=== PATIENT | female | born 1955 | race Caucasian/White ===

== ENCOUNTER 2021-01-18 02:35 | Emergency (ER) | payer MEDICARE, OTHER ==
[2021-01-18] MEDS ORDERED: Sodium Chloride 0.9% 1000 ML 1,000 ML IV STA (02:56)
--- NOTE | 2021-01-18 02:56 | ERPHSYRPT ---
- History of Present Illness Time Seen by Provider: 01/18/21 02:50 Source: patient, family Exam Limitations: no limitations Physician History: This is a 65-year-old white female who has had a hysterectomy in the past and presents with first urinary tract infection including dysuria and frequency that began on Sunday evening. Patient had these symptoms all day Sunday. Then, approximately 1 AM, this a.m., patient noticed more severe dysuria with associated hematuria then blood clots present. She had this 1 other time in the very distant past. She does not recall what the diagnosis was. She does not recall what the treatment was at the time. She has had no diarrhea. She has had no vomiting. He has suprapubic pain/pressure present. The worst pain is when she is urinating. Patient denies chest pain and she denies shortness of breath. She denies fever. She is not on any anticoagulation therapy and she has no liver disease. She has no bleeding or clotting disorders. Timing/Duration: yesterday Activites at Onset: none Quality: sharpness, stabbing Onset Location: suprapubic Pain Radiation: none Severity of Pain-Max: moderate Severity of Pain-Current: moderate Prior abdominal problems: none Sexual intercourse history: non-contributory Modifying Factors: Improves With: urinating (Worsens pain) Associated Symptoms: dysuria, urinary frequency, No fever, No chills Allergies/Adverse Reactions: alendronate sodium [From Fosamax] Allergy (Verified 01/18/21 03:22) Pctofyd-Bgp-Tld Reductase Inhibitor Allergy (Verified 01/18/21 03:22) Home Medications: Ezetimibe 10 mg [Zetia 10 MG] 10 mg PO DAILY 01/18/21 [History] Levothyroxine Sodium [Levothyroxine] 50 mcg PO DAILY 01/18/21 [History] Tolterodine Tartrate [Tolterodine Tartrate ER] 4 mg PO DAILY 01/18/21 [History] lisinopriL [Lisinopril] 10 mg PO DAILY 01/18/21 [History] Travel Risk - International Travel Have you traveled outside of the country in past 3 weeks: No - Coronavirus Screening Are you exhibiting any of the following symptoms?: No Close contact with a COVID-19 positive Pt in past 14-21 Days: No - Vaccine Status Have you recieved a Covid-19 vaccination: No - Review of Systems Constitutional: No Symptoms Eyes: No Symptoms Ears, Nose, & Throat: No Symptoms Respiratory: No Symptoms Cardiac: No Symptoms Abdominal/Gastrointestinal: Abdominal Pain (Pubic pressure) Genitourinary Symptoms: Frequency, Hematuria, Urgency Musculoskeletal: No Symptoms Skin: No Symptoms Neurological: No Symptoms Psychological: No Symptoms Endocrine: No Symptoms Hematologic/Lymphatic: No Symptoms Immunological/Allergic: No Symptoms All Other Systems: Reviewed and Negative - Past Medical History Pertinent Past Medical History: Yes - Past Surgical History Past Surgical History: Yes - Nursing Vital Signs Nursing Vital Signs: Initial Vital Signs Temperature 97.7 F 01/18/21 02:47 Pulse Rate 81 01/18/21 02:47 Respiratory Rate 18 01/18/21 02:47 Blood Pressure 171/81 01/18/21 02:47 O2 Sat by Pulse Oximetry 99 01/18/21 02:47 Pain Scale Pain Intensity 2 - Physical Exam General Appearance: no apparent distress, alert, anxiety Eye Exam: PERRL/EOMI, eyes nml inspection Ears, Nose, Throat Exam: normal ENT inspection, moist mucous membranes Neck Exam: normal inspection, non-tender, supple, full range of motion Respiratory Exam: normal breath sounds, lungs clear, airway intact, No chest tenderness, No respiratory distress Cardiovascular Exam: regular rate/rhythm, normal heart sounds, normal peripheral pulses Gastrointestinal/Abdomen Exam: soft, normal bowel sounds, tenderness, guarding, No rebound Pelvic Exam: not done Rectal Exam: not done Back Exam: normal inspection, normal range of motion, No CVA tenderness, No matthew tebral tenderness Extremity Exam: normal inspection, normal range of motion, pelvis stable Neurologic Exam: alert, oriented x 3, cooperative, 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 as tested, normal mood/affect, nml cerebellar function, nml station & gait, sensation nml Skin Exam: normal color, warm, dry Lymphatic Exam: No adenopathy SpO2 Interpretation: normal O2 Delivery: Room Air - Course Nursing assessment & vital signs reviewed: Yes Ordered Tests: Active Orders 24 hr Category Date Time Status IV Insertion STAT Care 01/18/21 02:56 Active ABDOMEN AND PELVIS W/0 CONTRAS [CT] Stat Exams 01/18/21 02:56 Taken AMYLASE Stat Lab 01/18/21 03:08 Completed CBC W DIFF Stat Lab 01/18/21 03:08 Completed CMP Stat Lab 01/18/21 03:08 Completed CULTURE,URINE Stat Lab 01/18/21 04:42 Received LIPASE Stat Lab 01/18/21 03:08 Completed Lactic Acid Stat Lab 01/18/21 03:09 Completed PROTIME WITH INR Stat Lab 01/18/21 03:08 Completed UA W/RFX UR CULTURE Stat Lab 01/18/21 04:42 Completed Medication Summary Discontinued Medications Generic Name Dose Route Start Last Admin Trade Name Dejan PRN Reason Stop Dose Admin Hydromorphone HCl 1 mg 01/18/21 03:02 01/18/21 03:11 Hydromorphone 1 Mg/Ml Injection IV 01/18/21 03:03 1 mg STAT ONE Administration Hydromorphone HCl Confirm 01/18/21 03:10 Hydromorphone 1 Mg/Ml Injection Administered 01/18/21 03:11 Dose 1 mg .ROUTE .STK-MED ONE Sodium Chloride 1,000 mls @ 999 mls/hr 01/18/21 02:56 01/18/21 04:21 Sodium Chloride 0.9% 1000 Ml IV 01/18/21 03:56 Infused .Q1H1M STA Infusion Sodium Chloride Confirm 01/18/21 03:10 Sodium Chloride 0.9% 1000 Ml Administered 01/18/21 03:11 Dose 1,000 mls @ ud .ROUTE .STK-MED ONE Ondansetron HCl 4 mg 01/18/21 03:02 01/18/21 03:11 Zofran 4 Mg/2 Ml Vial IV 01/18/21 03:03 4 mg STAT ONE Administration Ondansetron HCl Confirm 01/18/21 03:10 Zofran 4 Mg/2 Ml Vial Administered 01/18/21 03:11 Dose 4 mg .ROUTE .STK-MED ONE Lab/Rad Data: Laboratory Result Diagrams 01/18/21 03:08 01/18/21 03:08 Laboratory Results 01/18/21 01/18/21 01/18/21 Range/Units 04:42 03:09 03:08 WBC (4.0-10.5) K/mm3 RBC (4.1-5.4) M/mm3 Hgb (12.0-16.0) gm/dl Hct (35-47) % MCV (78-100) fl MCH (26-32) pg MCHC (32-36) g/dl RDW (11.5-14.0) % Plt Count (150-450) K/mm3 MPV (7.5-11.0) fl Gran % (36.0-66.0) % Eos # (Auto) (0-0.5) Absolute Lymphs (auto) (1.0-4.6) Absolute Monos (auto) (0.0-1.3) Lymphocytes % (24.0-44.0) % Monocytes % (0.0-12.0) % Eosinophils % (0.00-5.0) % Basophils % (0.0-0.4) % Absolute Granulocytes (1.4-6.9) Basophils # (0-0.4) PT 10.5 (9.95-12.35) SECONDS INR 0.93 (0.8-3.0) Sodium (137-145) mmol/L Potassium (3.5-5.1) mmol/L Chloride (98-107) mmol/L Carbon Dioxide (22-30) mmol/L Anion Gap (5-15) MEQ/L BUN (7-17) mg/dL Creatinine (0.52-1.04) mg/dL Estimated GFR ML/MIN Glucose (74-106) mg/dL Lactic Acid 1.4 (0.4-2.0) Calcium (8.4-10.2) mg/dL Total Bilirubin (0.2-1.3) mg/dL AST (14-36) U/L ALT (0-35) U/L Alkaline Phosphatase (38-126) U/L Serum Total Protein (6.3-8.2) g/dL Albumin (3.5-5.0) g/dL Amylase (30-110) U/L Lipase (23-300) U/L Urine Color RED (YELLOW) Urine Appearance CLOUDY (CLEAR) Urine pH 6.0 (5-6) Ur Specific [place] 1.011 (1.005-1.025) Urine Protein 100 (Negative) Urine Ketones NEGATIVE (NEGATIVE) Urine Blood LARGE (0-5) David/ul Urine Nitrite POSITIVE (NEGATIVE) Urine Bilirubin NEGATIVE (NEGATIVE) Urine Urobilinogen 2 (0-1) mg/dL Ur Leukocyte Esterase SMALL (NEGATIVE) Urine WBC (Auto) 6-10 (0-5) /HPF Urine RBC (Auto) >101 (0-2) /HPF U Epithel Cells (Auto) RARE (FEW) /HPF Urine Bacteria (Auto) FEW (NEGATIVE) /HPF Urine Culture Reflexed YES (NO) Urine Glucose NEGATIVE (NEGATIVE) mg/dL 01/18/21 01/18/21 Range/Units 03:08 03:08 WBC 13.6 H (4.0-10.5) K/mm3 RBC 4.36 (4.1-5.4) M/mm3 Hgb 13.1 (12.0-16.0) gm/dl Hct 38.9 (35-47) % MCV 89.2 (78-100) fl MCH 30.0 (26-32) pg MCHC 33.7 (32-36) g/dl RDW 13.9 (11.5-14.0) % Plt Count 329 (150-450) K/mm3 MPV 8.7 (7.5-11.0) fl Gran % 79.7 H (36.0-66.0) % Eos # (Auto) 0.09 (0-0.5) Absolute Lymphs (auto) 1.84 (1.0-4.6) Absolute Monos (auto) 0.80 (0.0-1.3) Lymphocytes % 13.5 L (24.0-44.0) % Monocytes % 5.9 (0.0-12.0) % Eosinophils % 0.7 (0.00-5.0) % Basophils % 0.2 (0.0-0.4) % Absolute Granulocytes 10.86 H (1.4-6.9) Basophils # 0.03 (0-0.4) PT (9.95-12.35) SECONDS INR (0.8-3.0) Sodium 138 (137-145) mmol/L Potassium 4.1 (3.5-5.1) mmol/L Chloride 101 (98-107) mmol/L Carbon Dioxide 28 (22-30) mmol/L Anion Gap 13.2 (5-15) MEQ/L BUN 12 (7-17) mg/dL Creatinine 0.64 (0.52-1.04) mg/dL Estimated GFR > 60.0 ML/MIN Glucose 106 (74-106) mg/dL Lactic Acid (0.4-2.0) Calcium 10.0 (8.4-10.2) mg/dL Total Bilirubin 0.40 (0.2-1.3) mg/dL AST 30 (14-36) U/L ALT 20 (0-35) U/L Alkaline Phosphatase 87 (38-126) U/L Serum Total Protein 7.2 (6.3-8.2) g/dL Albumin 4.5 (3.5-5.0) g/dL Amylase 57 (30-110) U/L Lipase 96 (23-300) U/L Urine Color (YELLOW) Urine Appearance (CLEAR) Urine pH (5-6) Ur Specific [place] (1.005-1.025) Urine Protein (Negative) Urine Ketones (NEGATIVE) Urine Blood (0-5) David/ul Urine Nitrite (NEGATIVE) Urine Bilirubin (NEGATIVE) Urine Urobilinogen (0-1) mg/dL Ur Leukocyte Esterase (NEGATIVE) Urine WBC (Auto) (0-5) /HPF Urine RBC (Auto) (0-2) /HPF U Epithel Cells (Auto) (FEW) /HPF Urine Bacteria (Auto) (NEGATIVE) /HPF Urine Culture Reflexed (NO) Urine Glucose (NEGATIVE) mg/dL - Progress Progress: improved, re-examined Air Movement: good Progress Note: 01/18/21 05:32 CAT scan of the abdomen pelvis reveals mild bladder wall thickening and perivesical fat stranding suggestive of cystitis/UTI Blood Culture(s) Obtained: No Antibiotics given: Yes Counseled pt/family regarding: lab results, diagnosis, need for follow-up, rad results - Departure Departure Disposition: Home Clinical Impression: Hemorrhagic cystitis, UTI (urinary tract infection) Condition: Stable Critical Care Time: No Additional Instructions: Drink plenty of fluids. Take medication as prescribed. Follow-up with your primary care physician for further management Prescriptions: Hydrocodone/APAP 5/325 [[place] 5/325 mg] 1 each PO Q8H PRN PRN #9 tablet MDD 3 PRN Reason: Pain Ciprofloxacin [Cipro 500 MG] 500 mg PO BID #14 tablet
[2021-01-18] MEDS ORDERED: Zofran 4 MG/2 ML VIAL IV ONE (03:02)
[2021-01-18] MEDS ORDERED: Hydromorphone 1 mg/ml Injection IV ONE (03:02)
[2021-01-18] MEDS ORDERED: Sodium Chloride 0.9% 1000 ML 1,000 ML ONE (03:10)
[2021-01-18] MEDS ORDERED: Hydromorphone 1 mg/ml Injection ONE (03:10)
[2021-01-18] MEDS ORDERED: Zofran 4 MG/2 ML VIAL ONE (03:10)
[2021-01-18 03:23] LABS: Absolute Neutrophil Ct (ANC) 10.86 (1.4-6.9); BASOPHIL % 0.2 % (0.0-0.4); Basophil (Absolute #) 0.03 (0-0.4); Eosinophil % 0.7 % (0.00-5.0); Eosinophil (Absolute #) 0.09 (0-0.5); Hematocrit 38.9 % (35-47); Hemoglobin 13.1 gm/dl (12.0-16.0); Lymphocyte (Absolute #) 1.84 (1.0-4.6); Lymphocytes % 13.5 % (24.0-44.0); Mean Cell Volume 89.2 fl (78-100); Mean Corpuscular Hgb Concent. 33.7 g/dl (32-36); Mean Platelet Volume 8.7 fl (7.5-11.0); Monocytes % 5.9 % (0.0-12.0); Neutrophil % 79.7 % (36.0-66.0); Platelet Count 329 K/mm3 (150-450); Red Blood Count 4.36 M/mm3 (4.1-5.4); Red Cell Distribution Width 13.9 % (11.5-14.0); White Blood Count 13.6 K/mm3 (4.0-10.5)
[2021-01-18 03:29] LABS: INR 0.93 (0.8-3.0); PROTIME 10.5 SECONDS (9.95-12.35)
[2021-01-18 03:35] LABS: ALBUMIN 4.5 g/dL (3.5-5.0); ALKALINE PHOSPHATASE 87 U/L (38-126); AMYLASE 57 U/L (30-110); ANION GAP 13.2 MEQ/L (5-15); BLOOD UREA NITROGEN 12 mg/dL (7-17); CHLORIDE 101 mmol/L (98-107); Carbon Dioxide 28 mmol/L (22-30); Creatinine 1 0.64 mg/dL (0.52-1.04); EST GLOMERULAR FILTRATION RATE > 60.0 ML/MIN; Glucose 106 mg/dL (74-106); LIPASE 96 U/L (23-300); Potassium 4.1 mmol/L (3.5-5.1); SGOT/AST 30 U/L (14-36); SGPT/ALT 20 U/L (0-35); SODIUM 138 mmol/L (137-145); Total Protein 7.2 g/dL (6.3-8.2)
[2021-01-18 04:54] LABS: Appearance CLOUDY (CLEAR); Bacteria FEW /HPF (NEGATIVE); Bilirubin NEGATIVE (NEGATIVE); Blood LARGE Ery/ul (0-5); Epithelial Cells RARE /HPF (FEW); Glucose NEGATIVE (NEGATIVE); Ketones NEGATIVE (NEGATIVE); Leukocyte Esterase SMALL (NEGATIVE); Nitrite POSITIVE (NEGATIVE); Protein,Urine Dip 100 (Negative); Specific Gravity 1.011 (1.005-1.025); Urobilinogen 2 mg/dL (0-1)
[2021-01-18 04:55] LABS: RBC >101 /HPF (0-2)
[2021-01-18] MEDS ORDERED: ROCEPHIN 1 Gm-D5w 50 ml Bag** 1 G/50 ML IVPB IV STA (05:30)
[2021-01-18] MEDS ORDERED: Levofloxacin 500 MG Tablet PO ONE (05:31)
[2021-01-18] MEDS ORDERED: Levofloxacin 500 MG Tablet ONE (05:43)
[2021-01-18] MEDS ORDERED: ROCEPHIN 1 Gm-D5w 50 ml Bag** 1 G/50 ML IVPB IV ONE (05:43)
[2021-01-18 06:16] VITALS: BP 135/68; PULSE 73; O2SAT 97
--- NOTE | 2021-01-18 09:02 | XRAY ---
Indication: Abdomen pain. Dysuria with blood clots. Multiple contiguous axial images obtained through the abdomen and pelvis without contrast. Comparison: None Lung bases demonstrate mild dependent atelectasis and small left lower calcified granuloma. No infiltrate or effusion. Heart is not enlarged. Noncontrasted stomach and bowel loops appear nonobstructed. Appendix not seen. Mild diffuse scattered colonic fecal debris throughout. There has been hysterectomy with bilateral pelvic surgical clips. No free fluid/air. Urinary bladder demonstrates mild circumferential wall thickening with minimal stranding, possibly cystitis in the right clinical setting. Splenic calcified granuloma. Remaining liver, gallbladder, pancreas, spleen, adrenal glands, kidneys, and ureters are unremarkable for noncontrast exam. Mild scattered aortoiliac calcifications without AAA. Osseous structures intact with mild degenerative changes throughout the spine. Impression: 1. Urinary bladder wall thickening with stranding. Rule out cystitis. 2. Incidental diffuse fecal stasis, chronic bony findings, and old granulomatous disease. Comment: Preliminary interpretation was made by [facility]. No critical discrepancy.
== END 2021-01-18 06:24 | disposition home or self-care (01) ==
LOC: ED 02:35
DX: N30.91 Cystitis, unspecified with hematuria (principal); R10.9 Unspecified abdominal pain
CPT/HCPCS: 36000; 36415; 74176; 80053; 81001; 82150; 83605; 83690; 85025; 85610; 87077; 87086; 87186; 96360; 96365; 96374; 96375; 99284; J0696; J1170; J2405; A9270-GY